=== PATIENT | female | born 1980 | race Caucasian/White ===

== ENCOUNTER → 2020-12-20 | Outpatient (CLI) | payer OTHER ==
[~2020-12-20] MED LIST: ALPRAZOLAM0.5 MG PO; ATORVASTATIN CA20 MG PO; CELECOXIB100 M1 PO; ESZOPICLONE1 MG PO
[2020-12-20 10:02] LABS: BASO # 0.04 (0.02-0.10); EOS # 0.23 (0.04-0.40); EOS % 2.4 % (1.0-5.0); HEMATOCRIT 42.2 % (37.0-47.0); HEMOGLOBIN 14.2 g/dL (12.5-16.0); LYMPH# 2.08 (1.50-4.00); MEAN CELL VOLUME 96 fl (78-100); MEAN CORPUSCULAR HEMOGLOBIN 32 pg (27-31); MEAN CORPUSCULAR HGB CONC 34 g/dL (33-37); MEAN PLATELET VOLUME 9.4 fl (7.4-10.4); MONO # 0.95 (0.20-0.80); NEU # 6.37 (1.40-6.50); PLATELET COUNT 246 K/mm3 (130-400); RED CELL DISTRIBUTION WIDTH 12.6 % (11.5-14.5); WHITE BLOOD COUNT 9.7 K/mm3 (4.8-10.8)
[2020-12-20 10:06] LABS: POTASSIUM 4.6 mmol/L (3.5-5.1)
[2020-12-20 10:07] LABS: CALCIUM 9.8 mg/dL (8.3-10.5)
[2020-12-20 10:10] LABS: TOTAL BILIRUBIN 0.4 mg/dL (0.2-1.2)
== END ==
LOC: LAB 09:33
PROVIDERS: Family Medicine
DX: Z00.00 Encounter for general adult medical examination without abnormal findings (principal); Z12.39 Encounter for other screening for malignant neoplasm of breast; E78.5 Hyperlipidemia, unspecified; M50.322 Other cervical disc degeneration at C5-C6 level

== ENCOUNTER → 2021-01-10 | Outpatient (CLI) | payer OTHER | LOC: MAMMO 15:48 | DX: Z12.31 Encounter for screening mammogram for malignant neoplasm of breast (principal); Z98.82 Breast implant status ==

== ENCOUNTER 2021-01-23 14:56 | Outpatient (RCR) | payer OTHER ==
[2021-01-26] MEDS ORDERED: ATORVASTATIN CA20 MG PO (09:04)
[2021-01-26] MEDS ORDERED: ALPRAZOLAM0.5 MG PO (09:04)
[2021-01-26] MEDS ORDERED: CELECOXIB100 M1 PO (09:04)
[2021-01-26] MEDS ORDERED: ESZOPICLONE1 MG PO (09:04)
== END 2021-04-23 | disposition home or self-care (01) ==
LOC: PT
DX: M54.2 Cervicalgia (principal)

== ENCOUNTER → 2021-01-26 | Outpatient (CLI) | payer OTHER ==
[2021-01-26 09:34] VITALS: BP 105/63
[2021-01-26 11:01] VITALS: BP 113/68
== END ==
LOC: LAB 08:55
DX: J02.9 Acute pharyngitis, unspecified (principal); R51.9 Headache, unspecified; R53.83 Other fatigue; Z20.822 Contact with and (suspected) exposure to COVID-19
CPT/HCPCS: J7030

== ENCOUNTER → 2021-02-16 | Outpatient (CLI) | payer OTHER | LOC: RAD 14:06 | DX: M50.30 Other cervical disc degeneration, unspecified cervical region (principal); M50.222 Other cervical disc displacement at C5-C6 level; M54.6 Pain in thoracic spine ==

== ENCOUNTER → 2021-05-22 | Outpatient (CLI) | payer OTHER ==
[2021-05-22 12:05] LABS: HEMATOCRIT 40.8 % (37.0-47.0); HEMOGLOBIN 13.8 g/dL (12.5-16.0); MEAN CELL VOLUME 92 fl (78-100); MEAN CORPUSCULAR HEMOGLOBIN 31 pg (27-31); MEAN CORPUSCULAR HGB CONC 34 g/dL (33-37); MEAN PLATELET VOLUME 9.1 fl (7.4-10.4); PLATELET COUNT 201 K/mm3 (130-400); RED BLOOD COUNT 4.43 M/mm3 (4.10-5.30); WHITE BLOOD COUNT 7.9 K/mm3 (4.8-10.8)
[2021-05-22 12:09] LABS: POTASSIUM 4.2 mmol/L (3.5-5.1); SODIUM 137 mmol/L (136-145)
[2021-05-22 12:10] LABS: CALCIUM 8.9 mg/dL (8.3-10.5)
[2021-05-22 12:11] LABS: GLUCOSE 96 mg/dL (65-105); TOTAL PROTEIN 7.3 g/dL (6.4-8.3)
[2021-05-22 12:12] LABS: CARBON DIOXIDE 22 mmol/L (22-29)
[2021-05-22 12:13] LABS: TOTAL BILIRUBIN 0.7 mg/dL (0.2-1.2)
[2021-05-22 12:16] LABS: AST-SGOT 53 U/L (5-34)
[2021-05-22 12:17] LABS: ALT/SGPT 110 U/L (0-55)
[2021-05-22 12:29] LABS: TROPONIN-I < 0.030 ng/mL (<0.030)
[2021-05-22 13:02] LABS: LYMPHOCYTE 66 % (20-51); MONOCYTE 12 % (3-10); NEUTROPHILS 20 % (42-75)
== END ==
LOC: LAB 11:24
PROVIDERS: Family Medicine
DX: M50.30 Other cervical disc degeneration, unspecified cervical region (principal); F41.1 Generalized anxiety disorder; G43.909 Migraine, unspecified, not intractable, without status migrainosus; G47.09 Other insomnia

== ENCOUNTER → 2021-05-24 | Outpatient (CLI) | payer OTHER ==
[2021-05-24 09:41] LABS: HEMATOCRIT 40.4 % (37.0-47.0); HEMOGLOBIN 13.5 g/dL (12.5-16.0); MEAN CELL VOLUME 92 fl (78-100); MEAN CORPUSCULAR HEMOGLOBIN 31 pg (27-31); MEAN CORPUSCULAR HGB CONC 33 g/dL (33-37); MEAN PLATELET VOLUME 9.2 fl (7.4-10.4); PLATELET COUNT 200 K/mm3 (130-400); RED BLOOD COUNT 4.38 M/mm3 (4.10-5.30); RED CELL DISTRIBUTION WIDTH 13.1 % (11.5-14.5); WHITE BLOOD COUNT 6.7 K/mm3 (4.8-10.8)
[2021-05-24 13:16] LABS: LYMPHOCYTE 51 % (20-51); MONOCYTE 11 % (3-10); NEUTROPHILS 24 % (42-75)
[2021-05-24 23:41] LABS: HEPATITIS C ANTIBODY Negative (Negative)
== END ==
LOC: RAD 08:45
PROVIDERS: Family Medicine
DX: R74.01 Elevation of levels of liver transaminase levels (principal); R00.1 Bradycardia, unspecified; R00.0 Tachycardia, unspecified; M50.30 Other cervical disc degeneration, unspecified cervical region; F41.1 Generalized anxiety disorder; G43.909 Migraine, unspecified, not intractable, without status migrainosus; G47.09 Other insomnia
CPT/HCPCS: Q9967

== ENCOUNTER → 2021-05-25 | Outpatient (CLI) | payer OTHER | LOC: RAD 08:59 | DX: R74.01 Elevation of levels of liver transaminase levels (principal) ==

== ENCOUNTER → 2021-06-27 | Outpatient (CLI) | payer OTHER ==
[2021-06-27 10:05] LABS: BASO # 0.04 K/mm3 (0.02-0.10); EOS % 1.8 % (1.0-5.0); HEMATOCRIT 38.4 % (37.0-47.0); HEMOGLOBIN 13.5 g/dL (12.5-16.0); LYMPH# 2.53 K/mm3 (1.50-4.00); MEAN CELL VOLUME 91 fl (78-100); MEAN CORPUSCULAR HEMOGLOBIN 32 pg (27-31); MEAN CORPUSCULAR HGB CONC 35 g/dL (33-37); MEAN PLATELET VOLUME 9.3 fl (7.4-10.4); NEU # 2.39 K/mm3 (1.40-6.50); PLATELET COUNT 256 K/mm3 (130-400); RED BLOOD COUNT 4.24 M/mm3 (4.10-5.30); WHITE BLOOD COUNT 5.6 K/mm3 (4.8-10.8)
[2021-06-27 10:09] LABS: ALBUMIN 4.3 g/dL (3.5-5.0); POTASSIUM 4.3 mmol/L (3.5-5.1)
[2021-06-27 10:10] LABS: CALCIUM 9.7 mg/dL (8.3-10.5)
[2021-06-27 10:11] LABS: TOTAL PROTEIN 7.3 g/dL (6.4-8.3)
[2021-06-27 10:13] LABS: TOTAL BILIRUBIN 0.7 mg/dL (0.2-1.2)
== END ==
LOC: LAB 09:24
PROVIDERS: Family Medicine
DX: L01.00 Impetigo, unspecified (principal); M50.30 Other cervical disc degeneration, unspecified cervical region; F41.1 Generalized anxiety disorder; G43.909 Migraine, unspecified, not intractable, without status migrainosus; G47.09 Other insomnia; K75.81 Nonalcoholic steatohepatitis (NASH); D64.9 Anemia, unspecified

== ENCOUNTER → 2021-08-28 | Outpatient (CLI) | payer OTHER | LOC: LAB 07:50 | PROVIDERS: Nurse Practitioner | DX: N89.8 Other specified noninflammatory disorders of vagina (principal); N76.0 Acute vaginitis | CPT/HCPCS: Q0111 ==

== ENCOUNTER → 2021-10-12 | Outpatient (CLI) | payer OTHER | LOC: LAB 14:05 | DX: U07.1 COVID-19 (principal) ==

== ENCOUNTER → 2021-12-04 | Outpatient (CLI) | payer OTHER ==
[2021-12-04 14:17] LABS: BASO # 0.02 K/mm3 (0.02-0.10); EOS % 1.4 % (1.0-5.0); HEMATOCRIT 41.9 % (37.0-47.0); HEMOGLOBIN 14.2 g/dL (12.5-16.0); MEAN CELL VOLUME 94 fl (78-100); MEAN CORPUSCULAR HEMOGLOBIN 32 pg (27-31); MEAN CORPUSCULAR HGB CONC 34 g/dL (33-37); MEAN PLATELET VOLUME 9.3 fl (7.4-10.4); MONO # 0.57 K/mm3 (0.20-0.80); NEU # 3.98 K/mm3 (1.40-6.50); PLATELET COUNT 277 K/mm3 (130-400); RED BLOOD COUNT 4.44 M/mm3 (4.10-5.30); RED CELL DISTRIBUTION WIDTH 12.6 % (11.5-14.5); WHITE BLOOD COUNT 7.4 K/mm3 (4.8-10.8)
[2021-12-04 14:33] LABS: POTASSIUM 3.9 mmol/L (3.5-5.1)
[2021-12-04 14:34] LABS: ALBUMIN 4.5 g/dL (3.5-5.0)
[2021-12-04 14:35] LABS: CALCIUM 9.8 mg/dL (8.3-10.5)
[2021-12-04 14:36] LABS: TOTAL PROTEIN 7.5 g/dL (6.4-8.3)
[2021-12-04 14:38] LABS: TOTAL BILIRUBIN 0.7 mg/dL (0.2-1.2)
== END ==
LOC: LAB 14:03
PROVIDERS: Family Medicine
DX: Z00.00 Encounter for general adult medical examination without abnormal findings (principal); M50.20 Other cervical disc displacement, unspecified cervical region; Z77.120 Contact with and (suspected) exposure to mold (toxic); G43.909 Migraine, unspecified, not intractable, without status migrainosus; F41.1 Generalized anxiety disorder; G47.09 Other insomnia; E78.5 Hyperlipidemia, unspecified

== ENCOUNTER 2022-07-18 11:57 | Emergency (ER) | payer OTHER ==
[~2022-07-18] VITALS: Ht 162.6 cm; Wt 81.4 kg
[2022-07-18] MEDS ORDERED: FLUOXETINE HCL10 MG PO (12:07)
[2022-07-18] MEDS ORDERED: SINGULAIR 110 MG/TAB PO (12:07)
[2022-07-18] MEDS ORDERED: TEMAZEPAM30 M1 PO (12:07)
[2022-07-18] MEDS ORDERED: AIMOVIG AU140 MG/1 M SQ (12:08)
[2022-07-18] MEDS ORDERED: METRONIDAZOLE0.752 VG (12:26)
[2022-07-18 12:31] LABS: BASO # 0.03 K/mm3 (0.02-0.10); EOS # 0.09 K/mm3 (0.04-0.40); EOS % 0.8 % (1.0-5.0); HEMATOCRIT 44.6 % (37.0-47.0); HEMOGLOBIN 15.3 g/dL (12.5-16.0); LYMPH# 3.36 K/mm3 (1.50-4.00); MEAN CELL VOLUME 93 fl (78-100); MEAN CORPUSCULAR HEMOGLOBIN 32 pg (27-31); MEAN CORPUSCULAR HGB CONC 34 g/dL (33-37); MONO # 0.98 K/mm3 (0.20-0.80); NEU # 6.39 K/mm3 (1.40-6.50); PLATELET COUNT 295 K/mm3 (130-400); RED BLOOD COUNT 4.82 M/mm3 (4.10-5.30); RED CELL DISTRIBUTION WIDTH 12.3 % (11.5-14.5); WHITE BLOOD COUNT 10.9 K/mm3 (4.8-10.8)
[2022-07-18 12:36] LABS: ALBUMIN 4.3 g/dL (3.5-5.0); POTASSIUM 3.9 mmol/L (3.5-5.1)
[2022-07-18 12:37] LABS: CALCIUM 9.7 mg/dL (8.3-10.5)
[2022-07-18 12:39] LABS: TOTAL PROTEIN 6.9 g/dL (6.4-8.3)
[2022-07-18 12:40] LABS: TOTAL BILIRUBIN 0.4 mg/dL (0.2-1.2)
[2022-07-18 13:25] LABS: URINE APPEARANCE CLEAR; URINE BILIRUBIN NEGATIVE (NEGATIVE); URINE BLOOD NN (NEGATIVE); URINE COLOR YELLOW; URINE GLUCOSE NEGATIVE (NEGATIVE); URINE KETONE NEGATIVE (NEGATIVE); URINE LEUKOCYTE ESTERASE NEGATIVE (NEGATIVE); URINE NITRATE NEGATIVE (NEGATIVE); URINE PROTEIN(semi-quant) NEGATIVE (NEGATIVE); URINE UROBILINOGEN NORMAL (NORMAL); URINE WBC 0-1 /hpf (0-3)
[2022-07-18] MEDS ORDERED: KETOROLAC10 MG PO (13:46)
[2022-07-18 13:58] VITALS: BP 114/67
== END 2022-07-18 13:55 | disposition home or self-care (01) ==
LOC: ED 11:57
PROVIDERS: Family Medicine
DX: R10.31 Right lower quadrant pain (principal); Z28.310 Unvaccinated for COVID-19
CPT/HCPCS: J1885; J7030; Q9967

== ENCOUNTER → 2023-01-30 | Outpatient (CLI) | payer OTHER ==
[~2023-01-30] MED LIST changes: +AIMOVIG AU140 MG/1 M SQ; +FLUOXETINE HCL10 MG PO; +KETOROLAC10 MG PO; +METRONIDAZOLE0.752 VG; +SINGULAIR 110 MG/TAB PO; +TEMAZEPAM30 M1 PO
== END ==
LOC: RAD 08:43
DX: Z12.31 Encounter for screening mammogram for malignant neoplasm of breast (principal); R91.1 Solitary pulmonary nodule
CPT/HCPCS: Q9967

== ENCOUNTER → 2023-08-15 | Outpatient (CLI) | payer OTHER | LOC: RAD 12:52 | DX: M25.562 Pain in left knee (principal) ==

== ENCOUNTER → 2023-10-05 | Outpatient (CLI) | payer OTHER | LOC: LAB 07:49 | DX: N39.0 Urinary tract infection, site not specified (principal) ==

== ENCOUNTER → 2023-10-19 | Outpatient (CLI) | payer OTHER | LOC: LAB 15:15 | DX: N39.0 Urinary tract infection, site not specified (principal) ==

== ENCOUNTER → 2023-10-29 | Outpatient (CLI) | payer OTHER ==
[~2023-10-29] MED LIST changes: +Iohexol 300 - 100 ML VIAL IV ONE
== END ==
LOC: LAB 09:41
DX: R10.9 Unspecified abdominal pain (principal)
CPT/HCPCS: Q9967

== ENCOUNTER → 2023-11-04 | Outpatient (CLI) | payer OTHER ==
[~2023-11-04] MED LIST changes: -Iohexol 300 - 100 ML VIAL IV ONE
[2023-11-04 14:36] LABS: URINE APPEARANCE CLEAR (CLEAR); URINE COLOR YELLOW (YELLOW)
[2023-11-04 14:37] LABS: URINE BILIRUBIN NEGATIVE (NEGATIVE); URINE BLOOD TRACE-LYSED (NEGATIVE); URINE GLUCOSE NEGATIVE (NEGATIVE); URINE KETONE NEGATIVE (NEGATIVE); URINE LEUKOCYTE ESTERASE NEGATIVE (NEGATIVE); URINE NITRATE NEGATIVE (NEGATIVE); URINE PROTEIN(semi-quant) NEGATIVE (NEGATIVE); URINE WBC 0-1 /hpf (0-3)
[2023-11-05 09:09] LABS: ANA SCREEN with REFLEX Negative (Negative)
== END ==
LOC: LAB 13:56
PROVIDERS: Family Medicine
DX: R53.83 Other fatigue (principal); N39.0 Urinary tract infection, site not specified

== ENCOUNTER → 2023-12-10 | Outpatient (CLI) | payer OTHER ==
[2023-12-10 13:07] LABS: BASO # 0.01 K/mm3 (0.02-0.10); EOS # 0.22 K/mm3 (0.04-0.40); EOS % 2.6 % (1.0-5.0); HEMATOCRIT 43.6 % (37.0-47.0); HEMOGLOBIN 14.8 g/dL (12.5-16.0); LYMPH# 2.64 K/mm3 (1.50-4.00); MEAN CELL VOLUME 94 fl (78-100); MEAN CORPUSCULAR HEMOGLOBIN 32 pg (27-31); MEAN CORPUSCULAR HGB CONC 34 g/dL (33-37); MEAN PLATELET VOLUME 9.5 fl (7.4-10.4); MONO # 0.89 K/mm3 (0.20-0.80); NEU # 4.74 K/mm3 (1.40-6.50); PLATELET COUNT 322 K/mm3 (130-400); RED BLOOD COUNT 4.63 M/mm3 (4.10-5.30); RED CELL DISTRIBUTION WIDTH 12.2 % (11.5-14.5); WHITE BLOOD COUNT 8.5 K/mm3 (4.8-10.8)
[2023-12-10 13:09] LABS: URINE APPEARANCE CLEAR (CLEAR); URINE BILIRUBIN NEGATIVE (NEGATIVE); URINE BLOOD TRACE-INTACT (NEGATIVE); URINE COLOR YELLOW (YELLOW); URINE GLUCOSE NEGATIVE (NEGATIVE); URINE KETONE NEGATIVE (NEGATIVE); URINE LEUKOCYTE ESTERASE NEGATIVE (NEGATIVE); URINE NITRATE NEGATIVE (NEGATIVE); URINE PROTEIN(semi-quant) NEGATIVE (NEGATIVE)
[2023-12-10 13:15] LABS: ALBUMIN 4.4 g/dL (3.5-5.0)
[2023-12-10 13:16] LABS: CALCIUM 9.7 mg/dL (8.3-10.5)
[2023-12-10 13:17] LABS: TOTAL PROTEIN 7.5 g/dL (6.4-8.3)
[2023-12-10 13:38] LABS: TOTAL BILIRUBIN 0.4 mg/dL (0.2-1.2)
== END ==
LOC: LAB 12:52
PROVIDERS: Nurse Practitioner Family
DX: N39.0 Urinary tract infection, site not specified (principal)

== ENCOUNTER → 2023-12-11 | Outpatient (CLI) | payer OTHER | LOC: RAD 11:33 | DX: R10.2 Pelvic and perineal pain (principal) ==

== ENCOUNTER → 2024-01-14 | Outpatient (CLI) | payer OTHER ==
[2024-01-14 12:45] LABS: BASO # 0.01 K/mm3 (0.02-0.10); EOS # 0.15 K/mm3 (0.04-0.40); EOS % 1.8 % (1.0-5.0); HEMATOCRIT 41.4 % (37.0-47.0); HEMOGLOBIN 14.1 g/dL (12.5-16.0); LYMPH# 2.52 K/mm3 (1.50-4.00); MEAN CELL VOLUME 94 fl (78-100); MEAN CORPUSCULAR HEMOGLOBIN 32 pg (27-31); MEAN CORPUSCULAR HGB CONC 34 g/dL (33-37); MEAN PLATELET VOLUME 9.4 fl (7.4-10.4); MONO # 0.59 K/mm3 (0.20-0.80); PLATELET COUNT 298 K/mm3 (130-400); RED BLOOD COUNT 4.41 M/mm3 (4.10-5.30); RED CELL DISTRIBUTION WIDTH 12.6 % (11.5-14.5); WHITE BLOOD COUNT 8.2 K/mm3 (4.8-10.8)
[2024-01-14 12:53] LABS: ALBUMIN 4.1 g/dL (3.5-5.0)
[2024-01-14 12:54] LABS: CALCIUM 9.2 mg/dL (8.3-10.5)
[2024-01-14 12:55] LABS: TOTAL PROTEIN 7.1 g/dL (6.4-8.3)
[2024-01-14 12:57] LABS: TOTAL BILIRUBIN 0.6 mg/dL (0.2-1.2)
== END ==
LOC: LAB 12:09
PROVIDERS: Family Medicine
DX: E78.5 Hyperlipidemia, unspecified (principal); I10 Essential (primary) hypertension

== ENCOUNTER 2024-03-06 04:20 | Emergency (ER) | payer OTHER ==
[~2024-03-06] VITALS: Ht 162.6 cm; Wt 92.3 kg
[2024-03-06 04:31] VITALS: BP 122/88
[2024-03-06 05:20] LABS: PH-URINE 5.5 (5.0 - 8.0); URINE APPEARANCE CLOUDY (CLEAR); URINE BILIRUBIN 1+ (NEGATIVE); URINE BLOOD NEGATIVE (NEGATIVE); URINE COLOR YELLOW (YELLOW); URINE GLUCOSE NEGATIVE (NEGATIVE); URINE KETONE NEGATIVE (NEGATIVE); URINE LEUKOCYTE ESTERASE 1+ (NEGATIVE); URINE NITRATE NEGATIVE (NEGATIVE); URINE PROTEIN(semi-quant) NEGATIVE (NEGATIVE); URINE WBC 31-50 /hpf (0-3)
[2024-03-06 05:21] LABS: URINE MUCUS PRESENT (NOT PRESENT)
[2024-03-06] MEDS ORDERED: Ondansetron 4 MG/2 ML VIAL IV ONE (05:30)
[2024-03-06 05:41] LABS: BASO # 0.01 K/mm3 (0.02-0.10); EOS # 0.14 K/mm3 (0.04-0.40); EOS % 1.5 % (1.0-5.0); HEMATOCRIT 41.6 % (37.0-47.0); HEMOGLOBIN 13.9 g/dL (12.5-16.0); LYMPH# 2.85 K/mm3 (1.50-4.00); MEAN CELL VOLUME 96 fl (78-100); MEAN CORPUSCULAR HEMOGLOBIN 32 pg (27-31); MEAN CORPUSCULAR HGB CONC 33 g/dL (33-37); MEAN PLATELET VOLUME 9.2 fl (7.4-10.4); MONO # 0.84 K/mm3 (0.20-0.80); PLATELET COUNT 280 K/mm3 (130-400); RED BLOOD COUNT 4.33 M/mm3 (4.10-5.30); RED CELL DISTRIBUTION WIDTH 12.5 % (11.5-14.5); WHITE BLOOD COUNT 9.5 K/mm3 (4.8-10.8)
[2024-03-06] MEDS ORDERED: Ketorolac 30 MG/ML VIAL IV ONE (05:45)
[2024-03-06 05:48] LABS: ALBUMIN 3.8 g/dL (3.5-5.0)
[2024-03-06 05:49] LABS: CALCIUM 9.1 mg/dL (8.3-10.5)
[2024-03-06 05:50] LABS: TOTAL PROTEIN 6.4 g/dL (6.4-8.3)
[2024-03-06 05:52] LABS: TOTAL BILIRUBIN 0.4 mg/dL (0.2-1.2)
[2024-03-06] MEDS ORDERED: NS 1,000 ML IV SCH (06:15)
[2024-03-06] MEDS ORDERED: cefTRIAXone 1 G in Water For Injection,Sterile 10 ML IV ONE (06:15)
[2024-03-06] MEDS ORDERED: Iohexol 300 - 100 ML VIAL IV ONE (06:20)
[2024-03-06] MEDS ORDERED: LEVOFLOXACIN500 M1 PO (06:50)
== END 2024-03-06 08:47 | disposition home or self-care (01) ==
LOC: ED 04:20
PROVIDERS: Nurse Practitioner
DX: N83.202 Unspecified ovarian cyst, left side (principal); N39.0 Urinary tract infection, site not specified; Z87.891 Personal history of nicotine dependence
CPT/HCPCS: J0696; J1885; J7030; Q9967

== ENCOUNTER → 2024-07-07 | Outpatient (CLI) | payer OTHER ==
[~2024-07-07] MED LIST changes: +LEVOFLOXACIN500 M1 PO
[2024-07-07 12:53] LABS: EOS # 0.08 K/mm3 (0.04-0.40); HEMATOCRIT 41.9 % (37.0-47.0); HEMOGLOBIN 14.2 g/dL (12.5-16.0); LYMPH# 2.36 K/mm3 (1.50-4.00); MEAN CELL VOLUME 93 fl (78-100); MEAN CORPUSCULAR HEMOGLOBIN 31 pg (27-31); MEAN CORPUSCULAR HGB CONC 34 g/dL (33-37); MEAN PLATELET VOLUME 10.1 fl (7.4-10.4); MONO # 0.69 K/mm3 (0.20-0.80); NEU # 5.19 K/mm3 (1.40-6.50); PLATELET COUNT 307 K/mm3 (130-400); RED BLOOD COUNT 4.53 M/mm3 (4.10-5.30); WHITE BLOOD COUNT 8.3 K/mm3 (4.8-10.8)
[2024-07-07 12:59] LABS: ALBUMIN 4.4 g/dL (3.5-5.0)
[2024-07-07 13:00] LABS: CALCIUM 9.7 mg/dL (8.3-10.5)
[2024-07-07 13:01] LABS: TOTAL PROTEIN 7.7 g/dL (6.4-8.3)
[2024-07-07 13:03] LABS: TOTAL BILIRUBIN 0.5 mg/dL (0.2-1.2)
== END ==
LOC: LAB 12:20
PROVIDERS: Family Medicine
DX: E78.5 Hyperlipidemia, unspecified (principal); I10 Essential (primary) hypertension

== ENCOUNTER → 2024-07-28 | Outpatient (CLI) | payer OTHER | LOC: RAD 09:11 | DX: R74.01 Elevation of levels of liver transaminase levels (principal); Z90.49 Acquired absence of other specified parts of digestive tract ==

== ENCOUNTER → 2024-07-29 | Outpatient (CLI) | payer OTHER | LOC: MAMMO 11:00 | DX: Z12.31 Encounter for screening mammogram for malignant neoplasm of breast (principal); K57.30 Diverticulosis of large intestine without perforation or abscess without bleeding ==